=== PATIENT | female | born 1950 | race Caucasian/White ===

== ENCOUNTER 2018-06-26 09:13 | Emergency (ER) | payer MEDICARE, OTHER ==
[~2018-06-26] VITALS: Ht 165.1 cm; Wt 86.2 kg
[~2018-06-26 09:13] MED LIST: AMBIEN5 MG PO; CYCLOBENZAPRINE10 MG PO; HYDROCODONE; IBUPROFEN; LEVAQUIN250 MG PO; LEXAPRO5 MG PO; LIPITOR20 MG PO; LORAZEPAM0.5 MG PO; LOVENOX40 MG/0.4 SC; NICODERM CQ1 EAC1 TOP; NORCO 10-325 T1 EACH PO; SYNTHROID PO; TRAZODONE HCL50 MG PO; TYLENOL; ZOLOFT PO
[2018-06-26] MEDS ORDERED: SODIUM CHLORIDE 0.9% 1000ML 1,000 ML IV STA (09:25)
[2018-06-26] MEDS ORDERED: ONDANSETRON HCL INJ 2MG/ML 2ML 2 MG/ML VIAL IV NR (09:30)
[2018-06-26] MEDS ORDERED: FAMOTIDINE 20 MG/2 ML VIAL IV NR (09:30)
--- NOTE | 2018-06-26 10:35 | Diagnostic Imaging Report ---
EXAM: KNEE RIGHT THREE VIEWS DATE: 06/26/2018 9:25 AM INDICATION: ^fall, dislocated knee cap ^[id number] ^[id number] COMPARISON: None FINDINGS: 3 views of the right knee shows a mid patellar fracture with 2.0 cm separation of superior and inferior fracture fragments. Chondrocalcinosis is noted with calcification in the medial and lateral joint cartilages. No other displaced fracture or dislocation. IMPRESSION: 1. Transverse fracture through the midportion of the patella with 2 cm separation of superior and inferior fracture fragments. 2. Chondrocalcinosis which may be on the basis of degenerative change or CPPD disease. Signed by: Dr. Ever Noland M.D. on 06/26/2018 10:32 AM
[2018-06-26] MEDS ORDERED: HYDROCODONE/APAP 5MG-325MG TAB PO NR (11:15)
[2018-06-26] MEDS ORDERED: BACITRACIN ZINC 0.9GM TP ONE (11:15)
[2018-06-26] MEDS ORDERED: KETOROLAC TROMETHAMINE 30 MG/ML VIAL IV NR (11:15)
--- NOTE | 2018-06-26 11:37 | NUR ---
SPOKE WITH PT AND FAMILY, PT IS NOT BEING ADMITTED TO HOSPITAL. EDUCATED ABOUT PROVIDER CARE, RESPITE CARE AND PRIVATE PAY PLACEMENT. 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 ASKED FOR A PRESCRIPTION FOR A ROLLATER. SPOKE WITH DOCTOR HE IS PROVIDING UPON DISCHARGE.
--- NOTE | 2018-06-26 12:20 | NUR ---
cleaned right knee, applied bacitracin ointment, 4x4's for padding and knee immobilizer
--- NOTE | 2018-06-26 13:01 | NUR ---
patient up walking with walker to use restroom. while exiting restroom, this nurse observed pateint turn and look behind her then stumble and fall backwards. patient landed on her buttocks. assisted patient back to standing position after verifying no new c/o pain. patient ambulated with walker and then was assisted into wheelchair. charge nurse called to assess patient. patient denied any new injury or pain. patient declined to have er md evaluate for new injuries stating that she was fine and that she didnt even aggrivate her right leg when falling. offered patient several times, from this nurse and er charge nurse, for evaulation of new injuries and patient's responce was she did not get any new injuries.
[2018-06-30] MEDS ORDERED: ZOLOFT (12:41)
[2018-07-04] MEDS ORDERED: IBUPROFEN200 MG PO (08:34)
[2018-07-04] MEDS ORDERED: VITAMIN D1000 UNI1 PO (08:34)
[2018-07-04] MEDS ORDERED: ONDANSETRON2 MG/1 ML PO (08:34)
[2018-07-04] MEDS ORDERED: ENALAPRIL MALEA20 MG PO (08:34)
[2018-07-04] MEDS ORDERED: HYDROCHLOROTHIA25 MG PO (08:34)
== END 2018-06-26 13:15 | disposition home or self-care (01) ==
LOC: ER 09:13
DX: S82.031A Displaced transverse fracture of right patella, initial encounter for closed fracture (principal); M25.561 Pain in right knee; W18.30XA Fall on same level, unspecified, initial encounter; Y92.008 Other place in unspecified non-institutional (private) residence as the place of occurrence of the external cause; F17.210 Nicotine dependence, cigarettes, uncomplicated
CPT/HCPCS: 29530; 73562; 99284; J1885; J2405; J7030

== ENCOUNTER → 2018-07-04 | Day surgery (SDC) | payer OTHER ==
[2018-06-30 14:01] LABS: BASOPHILS # (AUTO) 0.1 (0.0-0.1); BASOPHILS % 0.5 % (0.0-1.0); EOSINOPHILS # (AUTO) 0.2 (0.0-0.4); EOSINOPHILS % 1.7 % (0.0-6.0); HEMATOCRIT 31.9 % (34.2-44.1); HEMOGLOBIN 10.6 g/dL (12.0-16.0); LYMPHOCYTES # (AUTO) 2.2 (1.0-3.2); LYMPHOCYTES % 16.9 % (18.0-39.1); MEAN CORPUSCULAR HEMOGLOBIN 28.3 pg (28-32); MEAN CORPUSCULAR HGB CONC 33.2 g/dL (31-35); MEAN CORPUSCULAR VOLUME 85.3 fL (81-99); MONOCYTES # (AUTO) 0.7 (0.2-0.8); MONOCYTES % 5.5 % (4.4-11.3); NEUTROPHILS # (AUTO) 9.8 (2.1-6.9); NEUTROPHILS % 74.5 % (38.7-80.0); PLATELET COUNT 214 x10e3/uL (140-360); RED BLOOD COUNT 3.74 x10e6/uL (3.6-5.1); RED CELL DISTRIBUTION WIDTH 13.1 % (11.7-14.4)
--- NOTE | 2018-06-30 14:26 | Diagnostic Imaging Report ---
EXAMINATION: CHEST 2 VIEWS INDICATION: Preop. Knee surgery. ^PRE-ADMITING COMPARISON: None FINDINGS: TUBES and LINES: None. LUNGS: Lungs are well inflated. Lungs are clear. There is no evidence of pneumonia or pulmonary edema. PLEURA: No pleural effusion or pneumothorax. HEART AND MEDIASTINUM: The cardiomediastinal silhouette is unremarkable. BONES AND SOFT TISSUES: No acute osseous lesion. Soft tissues are unremarkable. UPPER ABDOMEN: No free air under the diaphragm. IMPRESSION: No acute thoracic abnormality. Signed by: Dr. Slava Welch M.D. on 06/30/2018 2:22 PM
[~2018-07-04] MED LIST changes: +ACETAMINOPHEN 1000 MG/100 ML IV ONE; +BACITRACIN 50,000 UNIT VIAL ONE; +CLINDAMYCIN PHOS 900MG/ 50ML 50 ML IV ONE; +DEXAMETHASONE SOD PHOS INJ 4 MG/ML VIAL ONE; +ENALAPRIL MALEA20 MG PO; +FENTANYL CITRATE/PF 100MCG/2 ML INJ ONE; +HYDROCHLOROTHIA25 MG PO; +IBUPROFEN200 MG PO; +KETOROLAC TROMETHAMINE 30 MG/ML VIAL ONE; +LIDOCAINE 2% /EPINEPHRINE 20 ML SDV INJ ONE; +LIDOCAINE HCL 2% LOCAL INJ 5 ML SDV VIAL INJ ONE; +MIDAZOLAM HCL 2 MG/2 ML VIAL ONE; +ONDANSETRON HCL INJ 2MG/ML 2ML 2 MG/ML VIAL ONE; +ONDANSETRON2 MG/1 ML PO; +PROPOFOL IV EMULSION 10 MG/ML 20 ML VIAL ONE; +ROPIVACAINE 0.5% 5 MG/ML 30 ML SDV ONE; +SEVOFLURANE INHAL SOLN 250 ML PEN BTL ONE; +VITAMIN D1000 UNI1 PO; +ZOLOFT
--- OUTSIDE RECORDS SUMMARY | 2018-07-04 07:49 | XMS REPORT ---
Author Author [facility] Address Unknown Phone Unavailable Care Team Providers Care Adult Specialist Name Role Phone MARIE BROWN Unavailable Unavailable Paula COURTNEY Unavailable Unavailable Problems This patient has no known problems. Allergies, Adverse Reactions, Alerts This patient has no known allergies or adverse reactions. Medications This patient has no known medications. Results Test Description Test Time Test Comments Text Results Atomic Results Result Comments CHEST 2 VIEWS 2018-06-30 14:22:00 [place] [id number] Patient Name: CESAR MELGOZA MR #: [id number] : 1950 Age/Sex: 68/F Req #: [id number] Adm Physician: Ordered by: MARIE BROWN MD Report #: [id number] Location: OR Room/Bed: Procedure: [id number] DX/CHEST 2 VIEWS Exam Date: Exam Time: REPORT STATUS: Signed EXAMINATION: CHEST 2 VIEWS INDICATION: Preop. Knee surgery. PRE-ADMITING COMPARISON: None FINDINGS: TUBES and LINES: None. LUNGS: Lungs are well inflated. Lungs are clear. There is no evidence of pneumonia or pulmonary edema. PLEURA: No pleural effusion or pneumothorax. HEART AND MEDIASTINUM: The cardiomediastinal silhouette is unremarkable. BONES AND SOFT TISSUES: No acute osseous lesion. Soft tissues are unremarkable. UPPER ABDOMEN: No free air under the diaphragm. IMPRESSION: No acute thoracic abnormality. Signed by: Dr. Slava Welch M.D. on 06/30/2018 2:22 PM Dictated By: SLAVA WELCH MD, MD 21 Transcribed By: AKHIL on 06/30/181421 COPY TO: MARIE BROWN MD KNEE RIGHT THREE VIEWS 2018-06-26 10:28:00 [place] [id number] Patient Name: CESAR MELGOZA MR #: [id number] : 1950 Age/Sex: 68/F Req #: [id number] Adm Physician: Ordered by: EVELYN COURTNEY MD Report #: [id number] Location: ER Room/Bed: Procedure: [id number] DX/KNEE RIGHT THREE VIEWS Exam Date: 06/26/18 Exam Time: 939 REPORT STATUS: Signed EXAM: KNEE RIGHT THREE VIEWS DATE: 06/26/2018 9:25 AM INDICATION: fall, dislocated knee cap [id number] COMPARISON: None FINDINGS: 3 views of the right knee shows a mid patellar fracture with 2.0 cm separation of superior and inferior fracture fragments. Chondrocalcinosis is noted with calcification in the medial and lateral joint cartilages. No other displaced fracture or dislocation. IMPRESSION: 1. Transverse fracture through the midportion of the patella with 2 cm separation of superior and inferior fracture fragments. 2. Chondrocalcinosis which may be on the basis of degenerative change or CPPD disease. Signed by: Dr. Lou Shell M.D. on 06/26/2018 10:32 AM Dictated By: LOU SHELL MD 1032 Transcribed By: AKHIL on 06/26/18 1032 COPY TO: EVELYN COURTNEY MD
[2018-07-04 12:15] VITALS: BP 114/75
[2018-07-04 13:19] LABS: ANION GAP 11.6 mmol/L (8-16); BLOOD UREA NITROGEN 15 mg/dL (7-26); BUN/CREATININE RATIO 21 (6-25); CALCIUM 9.2 mg/dL (8.4-10.2); CARBON DIOXIDE 25 mmol/L (22-29); CHLORIDE 107 mmol/L (98-107); EST GLOMERULAR FILTRATION RATE > 60 ML/MIN (60-); GLUCOSE 108 mg/dL (74-118); POTASSIUM 3.6 mmol/L (3.5-5.1); SODIUM 140 mmol/L (136-145)
--- NOTE | 2018-07-04 14:28 | Operative Report ---
DATE OF PROCEDURE: 07/04/2018 SURGEON: Steven Traylor MD BLUEPRINTING MACHINE OPERATOR: James Alvarez, Certified PA. PREOPERATIVE DIAGNOSIS: Comminuted right patellar fracture. POSTOPERATIVE DIAGNOSIS: Comminuted right patellar fracture. PROCEDURE: Open reduction and internal fixation, right patella. INDICATIONS: The patient is a 68-year-old lady, who has a comminuted markedly displaced right patella fracture. The findings and options have been discussed. We planned on open reduction with internal fixation. The degree of comminution was explained to the patient. She is at a high risk for developing patellofemoral arthritis in the future. She states she understands and wishes to proceed. PROCEDURE IN DETAIL: The patient was brought to the operating room and placed under general anesthetic. She received a regional block and prophylactic antibiotics in the holding area. Her right lower extremity was prepped and draped in a sterile manner. A preoperative time-out was performed. The extremity was exsanguinated and a proximal tourniquet was briefly inflated to 300 mmHg. A sterile Ioban was placed over the anterior aspect of the knee. An anterior approach was performed. A large subcutaneous hematoma was carefully evacuated. The fracture site was exposed. The knee was thoroughly irrigated. Additional intra-articular fracture hematoma was evacuated. The fracture was carefully inspected. The inferior pole was noted to be quite significantly comminuted but held together by a soft tissue envelope. Reduction clamps were placed. I could palpate the articular surface through the tears in the medial and lateral retinaculum. A near anatomic reduction was felt to be obtained. K-wires were placed in a parallel and vertical fashion. A 16-gauge wire was then used to create a tension band construct. This wire was carefully tensioned. Intraoperative x-rays confirmed satisfactory reduction and positioning of the hardware. The pins were cut short and buried into the soft tissue. The wound was further irrigated. The tears in the medial and lateral retinaculum were carefully repaired with interrupted #1 Ethibond in a [id number] fashion. The skin was closed with subcuticular Vicryl and myriam. A sterile bandage and a knee immobilizer were applied. The patient was extubated and transported to the recovery room in stable condition. There was no blood loss other than fracture or hematoma evacuation. All needle and sponge counts were correct. Steven Traylor MD DR/RANCHO /[id number]
== END | disposition home or self-care (01) ==
LOC: OR 07:45
PROVIDERS: ATTEND Specialist
DX: S82.031A Displaced transverse fracture of right patella, initial encounter for closed fracture (principal); E03.9 Hypothyroidism, unspecified; K21.9 Gastro-esophageal reflux disease without esophagitis; I10 Essential (primary) hypertension; I44.4 Left anterior fascicular block; F41.9 Anxiety disorder, unspecified; Z72.0 Tobacco use; W01.198A Fall on same level from slipping, tripping and stumbling with subsequent striking against other object, initial encounter; Y92.89 Other specified places as the place of occurrence of the external cause; Z88.0 Allergy status to penicillin; Z01.810 Encounter for preprocedural cardiovascular examination; Z01.812 Encounter for preprocedural laboratory examination; Z01.818 Encounter for other preprocedural examination; Z68.31 Body mass index [BMI] 31.0-31.9, adult; Z96.652 Presence of left artificial knee joint
CPT/HCPCS: 27524; 36415 ×2; 71046; 76000; 80048; 85025; 93005; J0131; J1100; J1885; J2001 ×2; J2250; J2405; J2704; J2795

== ENCOUNTER → 2018-09-13 | Outpatient (RCR) | payer MEDICARE, OTHER ==
[~2018-09-13] MED LIST changes: -ACETAMINOPHEN 1000 MG/100 ML IV ONE; -BACITRACIN 50,000 UNIT VIAL ONE; -CLINDAMYCIN PHOS 900MG/ 50ML 50 ML IV ONE; -DEXAMETHASONE SOD PHOS INJ 4 MG/ML VIAL ONE; -FENTANYL CITRATE/PF 100MCG/2 ML INJ ONE; -KETOROLAC TROMETHAMINE 30 MG/ML VIAL ONE; -LIDOCAINE 2% /EPINEPHRINE 20 ML SDV INJ ONE; -LIDOCAINE HCL 2% LOCAL INJ 5 ML SDV VIAL INJ ONE; -MIDAZOLAM HCL 2 MG/2 ML VIAL ONE; -ONDANSETRON HCL INJ 2MG/ML 2ML 2 MG/ML VIAL ONE; -PROPOFOL IV EMULSION 10 MG/ML 20 ML VIAL ONE; -ROPIVACAINE 0.5% 5 MG/ML 30 ML SDV ONE; -SEVOFLURANE INHAL SOLN 250 ML PEN BTL ONE
== END ==
LOC: PT 08-24 12:33
PROVIDERS: ATTEND Specialist
DX: S82.031D Displaced transverse fracture of right patella, subsequent encounter for closed fracture with routine healing (principal); Z47.89 Encounter for other orthopedic aftercare; M25.561 Pain in right knee; M62.81 Muscle weakness (generalized); R26.9 Unspecified abnormalities of gait and mobility

== ENCOUNTER 2018-10-12 15:41 | Outpatient (RCR) | payer OTHER | END 2018-10-14 | LOC: PT 15:41 | PROVIDERS: ATTEND Specialist | DX: S82.031D Displaced transverse fracture of right patella, subsequent encounter for closed fracture with routine healing (principal); Z47.89 Encounter for other orthopedic aftercare; M25.561 Pain in right knee; M62.81 Muscle weakness (generalized); R26.9 Unspecified abnormalities of gait and mobility | CPT/HCPCS: 97139 ==

== ENCOUNTER → 2018-11-13 | Outpatient (RCR) | payer OTHER | LOC: PT 10-19 13:38 | PROVIDERS: ATTEND Specialist | DX: S82.031D Displaced transverse fracture of right patella, subsequent encounter for closed fracture with routine healing (principal); Z47.89 Encounter for other orthopedic aftercare | CPT/HCPCS: 97139 ==

== ENCOUNTER → 2019-06-25 | Day surgery (SDC) | payer MEDICARE, OTHER ==
[2019-06-21 09:58] LABS: BASOPHILS # (AUTO) 0.1 (0.0-0.1); BASOPHILS % 0.7 % (0.0-1.0); EOSINOPHILS # (AUTO) 0.3 (0.0-0.4); EOSINOPHILS % 3.1 % (0.0-6.0); HEMATOCRIT 40.8 % (34.2-44.1); HEMOGLOBIN 13.1 g/dL (12.0-16.0); LYMPHOCYTES # (AUTO) 2.5 (1.0-3.2); LYMPHOCYTES % 22.1 % (18.0-39.1); MEAN CORPUSCULAR HEMOGLOBIN 28.4 pg (28-32); MEAN CORPUSCULAR HGB CONC 32.1 g/dL (31-35); MEAN CORPUSCULAR VOLUME 88.5 fL (81-99); MONOCYTES # (AUTO) 0.7 (0.2-0.8); MONOCYTES % 5.9 % (4.4-11.3); NEUTROPHILS # (AUTO) 7.5 (2.1-6.9); NEUTROPHILS % 67.7 % (38.7-80.0); PLATELET COUNT 196 x10e3/uL (140-360); RED BLOOD COUNT 4.61 x10e6/uL (3.6-5.1); RED CELL DISTRIBUTION WIDTH 14.7 % (11.7-14.4)
[~2019-06-25] MED LIST changes: +ACETAMINOPHEN 1000 MG/100 ML IV ONE; +BUPIVACAINE HCL 0.5% INJ 30 ML VIAL INJ ONE; +CLINDAMYCIN PHOS 900MG/ 50ML 50 ML IV ONE; +DEXAMETHASONE SOD PHOS INJ 4 MG/ML VIAL ONE; +FENTANYL CITRATE/PF 100MCG/2 ML INJ ONE; +KETOROLAC TROMETHAMINE 30 MG/ML VIAL ONE; +LIDOCAINE HCL 2% LOCAL INJ 5 ML SDV VIAL INJ ONE; +ONDANSETRON HCL INJ 2MG/ML 2ML 2 MG/ML VIAL ONE; +PROPOFOL IV EMULSION 10 MG/ML 20 ML VIAL ONE; +SEVOFLURANE INHAL SOLN 250 ML PEN BTL ONE; -ZOLOFT
[2019-06-25 10:00] VITALS: BP 116/66
--- NOTE | 2019-06-25 10:48 | Operative Report ---
DATE OF PROCEDURE: 06/25/2019 SURGEON: Steven Traylor MD TEXTILE SCREEN MAKER: James Alvarez, certified PA. PREOPERATIVE DIAGNOSIS: Painful hardware, right knee. POSTOPERATIVE DIAGNOSIS: Painful hardware, right knee. PROCEDURE: Hardware removal, right knee. INDICATIONS: The patient is a 69-year-old lady, who is status post an ORIF of her right patella. This has gone on to heal, but the hardware is prominent and painful. There is no sign of infection. The findings and options have been discussed. She would like to have this hardware removed. The risks and benefits were explained. She states she understands and wishes to proceed. PROCEDURE IN DETAIL: The patient was brought to the operating room and placed under general anesthetic. Her right lower extremity was prepped and draped in a sterile manner. A preoperative time-out was performed. The extremity was exsanguinated and a proximal tourniquet was briefly inflated to 300 mmHg. A portion of the previous incision was utilized. Hardware was easily dissected out. Wire cutters were used to remove portions of the hardware. The hardware was carefully removed with minimal disruption to the patella. An intraoperative x-ray confirmed complete removal of all of the hardware. The wound was irrigated and closed. A 5 mL of 0.5% Marcaine without epinephrine was injected around the incision. A sterile bandage was applied. She was extubated and transported to the recovery room in stable condition. There was no blood loss and all needle and sponge counts were correct. Steven Traylor MD DR/RANCHO /[id number]
== END | disposition home or self-care (01) ==
LOC: OR 05:50
PROVIDERS: ATTEND Specialist
DX: T84.84XA Pain due to internal orthopedic prosthetic devices, implants and grafts, initial encounter (principal); Z87.81 Personal history of (healed) traumatic fracture; I10 Essential (primary) hypertension; K21.9 Gastro-esophageal reflux disease without esophagitis; F17.210 Nicotine dependence, cigarettes, uncomplicated; Z88.0 Allergy status to penicillin; Y83.8 Other surgical procedures as the cause of abnormal reaction of the patient, or of later complication, without mention of misadventure at the time of the procedure; Z01.810 Encounter for preprocedural cardiovascular examination; Z01.812 Encounter for preprocedural laboratory examination; Z11.59 Encounter for screening for other viral diseases; Z68.30 Body mass index [BMI] 30.0-30.9, adult
CPT/HCPCS: 20680; 36415; 76000; 85025; 87635; 93005; J0131; J1100; J1885; J2001; J2405; J2704; J3010

== ENCOUNTER 2024-03-08 14:40 | Outpatient (RCR) | payer MEDICARE, OTHER ==
[~2024-03-08 14:40] MED LIST changes: -ACETAMINOPHEN 1000 MG/100 ML IV ONE; -BUPIVACAINE HCL 0.5% INJ 30 ML VIAL INJ ONE; -CLINDAMYCIN PHOS 900MG/ 50ML 50 ML IV ONE; -DEXAMETHASONE SOD PHOS INJ 4 MG/ML VIAL ONE; -FENTANYL CITRATE/PF 100MCG/2 ML INJ ONE; -KETOROLAC TROMETHAMINE 30 MG/ML VIAL ONE; -LIDOCAINE HCL 2% LOCAL INJ 5 ML SDV VIAL INJ ONE; -ONDANSETRON HCL INJ 2MG/ML 2ML 2 MG/ML VIAL ONE; -PROPOFOL IV EMULSION 10 MG/ML 20 ML VIAL ONE; -SEVOFLURANE INHAL SOLN 250 ML PEN BTL ONE
== END 2024-03-16 ==
LOC: PT 14:40
PROVIDERS: ATTEND Physician Assistant
DX: M54.42 Lumbago with sciatica, left side (principal); M62.81 Muscle weakness (generalized); R26.89 Other abnormalities of gait and mobility; M53.82 Other specified dorsopathies, cervical region

== ENCOUNTER 2024-04-10 16:00 | Outpatient (RCR) | payer MEDICARE, OTHER | END 2024-04-13 | LOC: PT 16:00 | PROVIDERS: ATTEND Physician Assistant | DX: M54.42 Lumbago with sciatica, left side (principal); M62.81 Muscle weakness (generalized); M53.86 Other specified dorsopathies, lumbar region; R26.89 Other abnormalities of gait and mobility ==